=== PATIENT | female | born 1940 | race Caucasian/White ===

== ENCOUNTER 2017-02-01 07:17 | Emergency (ER) | payer MEDICARE, OTHER ==
[~2017-02-01] VITALS: Ht 160 cm; Wt 63.5 kg
[~2017-02-01 07:17] MED LIST: AMLO5TAB PO; ASPIR 8181 MG PO; ASPIRIN 325MG325 MG PO; CALTRATE 600 +1 TA1 PO; CENTRUM1 TA2 PO; FEXOFENADINE180 MG PO; FLOVENT 11110 MCG/PU IH; FLUTICASONE 50M16 GM; GAVISCON OR; MASON NATURAL1200 MG PO; MAXAIR0.2 MG/ACT IH; METOPROLOL25 MG PO; MULTI VITAMINS1 TAB PO; NEXIUM40 MG PO; PLAVIX75 MG PO; PREMPRO 0.45 MG1 TAB PO; PRILOSEC40 MG PO; SERTRALINE100 M1 PO; SIMVASTATIN20 MG PO; SINGULAIR 10 MG10 MG PO; SINGULAIR10 MG PO; SUPER B COMPLEX1 TAB PO; TESSALON PERLE100 MG PO; TOPAMAX15 MG PO; TOPCARE ASPIRIN81 MG PO; VITAMIN D400 I1 PO; ZOLOFT25 MG PO
--- NOTE | 2017-02-01 08:25 | Emergency Room Report ---
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 N Clinical Suspician of Infection? Y Mental Status: 1 - Regular (Normal Baseline) Sepsis Risk:Low Sepsis Risk Have you (or family members/close friends) recently traveled outside the [place]? N If Yes, where/when: Have you had exposure to infectious disease within the past month? N TB? Other? Specify: I read and noted the above triage. But during my interview she was holding the left side of her neck and claiming that her neck hurts, Also, she claims pain in the upperthoracic region, she denies lumbar pain, but as mention above she has tail bone pain. She denoes numbness or tingling of the arms or legs, no loss of urine or bowel control. She denies head trauma, hedache, chest pain, palpitation , soa, abdominal pain, hematemsis or melena. She had vertebroplasty last year by Dr Kingston from [facility] and talin daily calcium without biphosphonate. Source patient, RN notes reviewed, family Exam Limitations no limitations ALLERGIES Coded Allergies: No Known Allergies (08/10/15) Home Medications Active Scripts Omeprazole (Prilosec 40mg Cap) 40 MG PO DAILY #30 CAP Prov: 07/23/12 Reported Medications Aspirin (Aspirin EC 81MG Tab) 81 MG PO DAILY Amlodipine Besylate (Amlodipine) 5 MG PO DAILY Montelukast Sodium (Singulair 10MG) 10 MG PO DAILY MULTIVITAMIN/IRON/FOLIC ACID (Centrum Complete Multivit Tab) 1 TAB PO DAILY CALCIUM CARBONATE/VITAMIN D3 (Caltrate 600 + D Tablet) 1 TAB PO DAILY Topiramate (Topamax) 15 MG PO QHS FLUTICASONE PROP (Flovent 110) 2 PUFF IH BID #1 INH SERTRALINE HCL (Sertraline HCl) 100 MG PO DAILY History Medical History General CAD? No Angina: Yes PR: No Hypertension? No Hyperlipidemia? Yes CHF? No DVT? No PE? No COPD? No Asthma? Yes Anemia? No GERD? No Gastric ulcers? No GI Bleed? No Hernia? No Thyroid Problems? No Hypothyroidism? No CVA? No Seizures? No Diabetes? No Renal Insuffiency? No End Stage Renal Disease? No UTI? No Stones? No BPH? No GB Disease: No Nephritic Syndrome? No Asplenia? No Hepatitis? No Sickle Cell Disease? No Arthritis? No Migraines? No Cataracts? No Glaucoma? No MRSA? No HIV? No TB? No Anxiety? No Depression? No Cancer? No More? No Immunization Hx DT/Tetanus UNKNOWN Flu THIS YR Pneumonia 1-4 YRS Surgical Hx Previous Surgery?Y FISTULA REPAIR BOWEL CARDIAC STENT L SHOULDER SURGERY HEART CATH Family History Family Hx Diabetes No CAD No Hypertension No Hyperlipidemia No Cancer No TB No Social History Smoking Hx Smoker: Never Smoker Tobacco: No Alcohol Alcohol: No Review of Systems All Other Systems Reviewed and Negative Constitutional no symptoms reported Eyes no symptoms reported ENT no symptoms reported. Respiratory no symptoms reported Cardiovascular no symptoms reported Gastrointestinal no symptoms reported Genitourinary no symptoms reported. Musculoskeletal see HPI, neck pain (upper back and tail bone pain) Skin no symptoms reported Psychiatric/Neurological no symptoms reported Physical Exam Vital Signs Vital Signs Date Time Temp Pulse Resp B/P Pulse O2 O2 Flow FiO2 Ox Delivery Rate 02/02 0817 59 18 152/77 98 02/01 0725 98.4 66 18 133/81 98 - WBC >12,000 or <4,000 or 10% bands? 2 or more SIRS Criteria Met? B/P:152/77 MAP:98 Creatinine >2.0? UA output<0.5ml/kg/hr for 2 hrs? Platelet count >100,000? Lactate >2.0mmol/1? INR >1.2 or PTT > than 60 sec? Evidence of Organ Dysfunction? Provider documented clinical suspician of infection? Y Sepsis Criteria Count: 1 Sepsis Risk: Low Sepsis Risk General Appearance normal appearance, WD/WN Eye Exam - bilateral eye normal exam, bilateral eye PERRL, bilateral eye EOMI Ear, Nose, Throat hearing grossly normal, normal ENT inspection Neck normal inspection (C5-6 and upper T2-3 tenderness) Respiratory Status Yes: trachea midline, chest symmetrical, non tender chest. No: respiratory distress. Lung Sounds bilateral: normal breath sounds, lungs clear. Cardiovascular normal exam, regular rate/rhythm, no peripheral edema, no gallop, no JVD, no murmur, no rub, normal peripheral pulses Peripheral Pulses Pulses normal Yes Gastrointestinal normal bowel sounds, normal exam, non tender, soft, no organomegaly Back normal inspection, no CVA tenderness, vertebral tenderness, see neck exam in addition to tenderness over the coccyx, there was NO lower thoracic or lumbar spine tenderness. Extremities non-tender, normal range of motion, normal inspection Neurologic alert, cook station II-XII nml as tested, normal exam, oriented x 3 Reflexes Reflexes normal Yes Mental status normal mood/affect Skin intact, normal color, warm/dry Lymphatic no adenopathy Medical Decision Making LABS/Meds/Orders Pt receiving controlled substance in ED? No Results/Orders Orders Procedure Date/time Status DIET-NOTHING BY MOUTH 02/[address] SCAN REQ 02/[address] SCAN REQUEST 02/02 816 Complete XRAY/CT/US XRAY/CT/US XRAY pelvis, L-spine XR interpretation by reviewed by me, discussed w/radiologist Xray Results no fracture seen Comment positive osteopenia and L2 vertebroplasty. no acute fractures. CT C-spine, T-spine CT interpretation by discussed w/radiologist Time results known: 956 CT Results no fracture seen, abnormal, osteopenia Departure Departure Time of Disposition 956 Disposition DC Home or Self Care(routine) Clinical Impression Primary Impression: Fall Secondary Impressions: Osteoporosis, Spasm of cervical paraspinous muscle Condition STABLE Referrals Cosme CASTILLO,Vaibhav Cueto (Family) Additional Instructions I have discussed withthe patient her x ray findings, I clearly spoke with her about getting better control and treatment of her osteoprosis to avoid fractures in the futures, she asked for pain medicine and I advised her that i will be rx a muscle relaxant. 1- rest. 2- warm compresses. 3- icy hot. 4- observe for new sx of numbness, tingling, weakness or loss of urine or bowel control to return. 5- follow up with Dr. Aguiar for osteoporsis control. Obtain MRI by Dr. Aguiar if pain persists. Discharge Counseling Counseled pt/family regarding diagnosis, test results, medications/RX, home care, follow up needs Prescriptions Current Visit Scripts Methocarbamol (Robaxin) 500 MG PO Q8HP PRN muscle pain #21 TAB ED Critical Care Critical Care No If Critical Care minutes are documented, the time involved in the performance of seperately reportable procedures was not counted toward critical care time documented. I directly delivered medical care to this critically ill and/or injured patient. Timely evaluation and treatment was necessary to address the significant organ system(s) dysfunction present in this patient. at 1002
--- NOTE | 2017-02-01 09:38 | RADIOLOGY REPORT PS360 ---
CT CERVICAL SPINE W/O CONT COMPARISON: None HISTORY: Patient fell yesterday in yard complaining of neck pain TECHNIQUE: Multiple axial scans of cervical spine were obtained. Sagittal coronal reformats were evaluated as well. FINDINGS: There is generalized osteopenia. There is normal curvature and alignment and C1-C7 appear intact. There is prominent anterior ossific spurring at the C3-4 level. There is no significant disc space narrowing. The spinal canal is normal size throughout. The prevertebral soft tissues are normal and the odontoid is normal. IMPRESSION: Relies osteopenia mild degenerative change at the C3-4 level, no acute cervical spine pathology noted
--- NOTE | 2017-02-01 09:43 | RADIOLOGY REPORT PS360 ---
CT THORACIC SPINE W/O CONTRAST COMPARISON: None HISTORY: Back pain after a fall yesterday TECHNIQUE: Multiple axial scans of the resting spine were obtained. Sagittal coronal reformats were evaluated as well. FINDINGS: There is prominent generalized osteopenia. There is normal curvature and alignment. 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 There is apparent old healed fracture at the costovertebral junction right side of T9 vertebrae. There is no acute compression fracture seen. There is no paraspinal mass. IMPRESSION: Prominent generalized osteopenia, mild multilevel degenerative changes, no acute compression fracture seen
--- NOTE | 2017-02-01 09:45 | RADIOLOGY REPORT PS360 ---
LUMBAR SPINE 5 VIEWS COMPARISON: Lumbar spine 07/24/2015 HISTORY: Low back pain after a fall TECHNIQUE: AP lateral and oblique views FINDINGS: There is normal curvature and alignment. There is a vertebroplasty of the L2 vertebral body for stabilization of a previous compression fracture which has occurred since the previous lumbar spine films of 07/24/2015 there is no acute compression fracture seen. Disc spaces are well maintained throughout. There is no pars defect. There is mild generalized osteopenia. IMPRESSION: Old vertebroplasty L2 vertebral body, no acute compression fracture seen
--- NOTE | 2017-02-01 09:46 | RADIOLOGY REPORT PS360 ---
PELVIS AP ONLY COMPARISON: AP pelvis and right hip 11/07/2015 HISTORY: Pelvic pain after a fall TECHNIQUE: AP pelvis FINDINGS: The iliac bones and pubic bones appear intact. Both hips are normally articulated with no evidence of fracture. The SI joints and symphysis pubis appear normal. IMPRESSION: Negative AP pelvis
--- NOTE | 2017-02-01 09:47 | RADIOLOGY REPORT PS360 ---
COCCYX 2 VIEW COMPARISON: None HISTORY: Tailbone pain after a fall TECHNIQUE: AP and lateral views FINDINGS: The sacrum and coccyx appear intact showing normal curvature and alignment. There is no fracture or subluxation. IMPRESSION: Negative sacrum and coccyx
[2017-02-01] MEDS ORDERED: ROBAXIN500 M1 PO (10:01)
[2017-02-01 10:25] VITALS: BP 152/77
--- OUTSIDE RECORDS SUMMARY | 2017-02-06 18:00 | External Medical Summary Rpt | CCD ---
Author Author , PRIMITIVO Organization [employer] Address Unknown Phone [email or web address] Support Name Relationship Address Phone FIGHT, Next Of Kin [address] [facility] [phone] [place] [id number] Purpose Continuity of Care Document - 07-23-2012 through 2016 Allergies, Adverse Reactions, Alerts Type Drug Allergy Adverse Reaction to Substance Substance Reaction Severity Albuterol Unknown Unknown Medications Na ND Rx Da Fi Fi Am Da Di Ph RX Ph St me C No te ll ll ou ys ag ar # ys at rm s nt no ma ic us Or Da si cy ia de te s n re d Sa 63 03 0 No li 80 -2 ne 70 9- Lo 10 20 ng Fl 07 13 er us 5 h Ac 10 ti ML ve Sy ri ng e NI 59 03 0 No TR 63 -2 OG 00 9- Lo LY 30 20 ng CE 06 13 er RI 5 N Ac 0. ti 4M ve G/ DO SE SP RA Y GI 12 03 0 No 32 -2 CO 22 9- Lo CK 22 20 ng TA 22 13 er IL 2 Ac 60 ti ML ve UD C Vital Signs 07-23-2012 14:30 Name Value Interpretat Reference Comment ion Range Body 97.9 [degF] Temperature BP 77 mm[Hg] Diastolic BP Systolic 148 mm[Hg] Heart 77 /min Rate/Pulse O2% 96 % Respiratory 18 /min Rate 07-23-2012 11:13 Name Value Interpretat Reference Comment ion Range BP 82 mm[Hg] Diastolic BP Systolic 179 mm[Hg] Heart 63 /min Rate/Pulse O2% 99 % Respiratory 16 /min Rate Results Labs Lab Lab Date Result Refere Interp Status Commen Order Detail nces retati t Range on CK SerPl-cCnc (07-23-2012 13:15) CK 51 U/L 26-192 complet SerPl-c 013 ed Cnc 13:15 CK MB SerPl-mCnc (07-23-2012 13:15) CK MB 0.9 0.0-3.6 complet SerPl-m 013 ng/mL ed Cnc 13:15 TROPONIN I (07-23-2012 13:15) TROPONI Less 0.00-0. complet N I 013 than 06 ed 13:15 0.02 ng/mL BASIC METABOLIC PANEL (07-23-2012 11:00) Glucose 84 74-106 complet 013 mg/dL ed Bld-mCn 11:00 c BUN 13 7-18 complet Bld-mCn 013 mg/dL ed c 11:00 Creat 0.8 0.6-1.0 complet SerPl-m 013 mg/dL ed Cnc 11:00 GFR 71 59- complet (ESTIMA 013 ML/MIN ed ANDI) 11:00 Sodium 141 136-145 complet SerPl-s 013 mmoL/L ed Cnc 11:00 Potassi 3.4 3.5-5.1 complet um 013 mmoL/L ed SerPl-s 11:00 Cnc Chlorid 103 98-107 complet e 013 mmoL/L ed SerPl-s 11:00 Cnc CO2 35 21.0-32 complet SerPl-s 013 mmoL/L .0 ed Cnc 11:00 Calcium 8.5 8.5-10. complet 013 mg/dL 1 ed SerPl-m 11:00 Cnc CK SerPl-cCnc (07-23-2012 11:00) CK 53 U/L 26-192 complet SerPl-c 013 ed Cnc 11:00 CK MB SerPl-mCnc (07-23-2012 11:00) CK MB 1.2 0.0-3.6 complet SerPl-m 013 ng/mL ed Cnc 11:00 TROPONIN I (07-23-2012 11:00) TROPONI Less 0.00-0. complet N I 013 than 06 ed 11:00 0.02 ng/mL CBC with AUTO DIFF (07-23-2012 11:00) WBC # 07-23-2 7.2 4.8-10. complet Bld 013 K/MM3 8 ed Auto 11:00 RBC # 07-23-2 4.81 4.2-5.4 complet Bld 013 M/mm3 ed Auto 11:00 Hgb 13.9 12.2-16 complet Bld-mCn 013 g/dL .2 ed c 11:00 Hct Fr 44.7 % 37.0-47 complet Bld 013 .0 ed 11:00 MCV RBC 93.0 fl 82.2-97 complet 013 .8 ed 11:00 MCH RBC 28.9 pg 27-31.2 complet Qn 013 ed Auto 11:00 MEAN 31.1 31.8-35 complet CORPUSC 013 g/dl .4 ed ULAR 11:00 HGB CONC RDW RBC 15.6 % 11.5-17 complet Auto 013 .5 ed 11:00 Platele 305 142-424 complet t Bld 013 K/mm3 ed Ql 11:00 Manual Granulo 65.5 % 37.0-80 complet cytes 013 .0 ed Fr Bld 11:00 Auto LYMPH % 29.0 % 10-50.0 complet 013 ed 11:00 Monocyt 5.5 % 1.7-9.3 complet es Fr 013 ed Bld 11:00 Auto Granulo 07-23- 4.7 1.8-7.8 complet cytes # 013 K/mm3 ed Bld 11:00 Auto Lymphoc 2 2.1 0.7-4.5 complet ytes Fr 013 K/mm3 ed Bld 11:00 Auto Monocyt 2 0.4 0.1-1.0 complet es # 013 K/mm3 ed Bld 11:00 Auto Encounters Encounter Start End Date Code Location Performer Type Date Emergency CHARY Haley MD (ER) 3 12:00 3 14:31 [facility]
--- OUTSIDE RECORDS SUMMARY | 2017-02-06 18:00 | External Medical Summary Rpt ---
Author Author RIDGE [facility] Organization [facility] Address Unknown Phone Unavailable Care Team Providers Care Valve Fitter Name Role Phone JORDAN BUCKY PCP [phone] Encounter RIDGE RUFFIN [id number] Date(s): 01/29/16 - 01/29/16 [facility] [address] [place] [address]- [phone] Discharge Disposition: OP Self Care or Home Attending Physician: DARIAN HINDS MD-ORT Admitting Physician: DARIAN HINDS MD-ORT Referring Physician: DARIAN HINDS MD-ORT Reason for Visit SACROILIITIS, NOT ELSEWHERE CLASSIFIED Vital Signs No data available for this section Problem List Condition Effective Status Health Informant Dates Status Asthma(Confi Active rmed) Stented Active patient coronary artery(Confi rmed)1 1Around five years ago Allergies, Adverse Reactions, Alerts No Known Allergies Medications No data available for this section Results No data available for this section Immunizations No data available for this section Procedures No data available for this section Social History No data available for this section Assessment and Plan No data available for this section Hospital Discharge Instructions No data available for this section
--- OUTSIDE RECORDS SUMMARY | 2017-02-06 18:00 | External Medical Summary Rpt | CCD ---
Author Author , PRIMITIVO Organization [employer] Address Unknown Phone [email or web address] Support Name Relationship Address Phone FIGHT, Next Of Kin [address] [facility] [phone] [place] [id number] Purpose Continuity of Care Document - 07-23-2012 [...] Haley MD (ER) 3 12:00 3 14:31 [facility]
--- OUTSIDE RECORDS SUMMARY | 2017-02-06 18:00 | External Medical Summary Rpt ---
Author Author RIDGE [facility] Organization [facility] Address Unknown Phone Unavailable Care Team Providers Care Balancer Name Role Phone JORDAN BUCKY PCP [phone] Encounter RIDGE RUFFIN [id number] Date(s): 01/29/16 - 01/29/16 [facility] [address] [place] [address]- Discharge Disposition: OP Self Care or Home [...]
--- OUTSIDE RECORDS SUMMARY | 2017-02-06 18:01 | External Medical Summary Rpt | CCD ---
Author Author , PRIMITIVO Organization [employer] Address Unknown Phone [email or web address] Immunization Name Date Rout CVX Reac Dose Comm Prov Is Faci e tion ent ider Refu lity Give sed n PCV1 03-2 133 0.5 Hist LEWI No RITE 3 9-20 mL oric S AID0 17 al DWIG 3938 Info HT rmat ion - Sour ce Unsp ecif ied Td 03-0 Intr 9 999 Hist H149 No H149 (leyda 4-19 amus oric lt), 97 cula al r Info adso rmat rbed ion - Sour ce Unsp ecif ied
--- OUTSIDE RECORDS SUMMARY | 2017-02-06 18:01 | External Medical Summary Rpt ---
Author Author PRIMITIVO Sanchez, PRIMITIVO Sanchez Organization [employer] Address Unknown Phone Unavailable
--- OUTSIDE RECORDS SUMMARY | 2017-02-06 18:01 | External Medical Summary Rpt | CCD ---
Author Author , [employer]IM[employer]IVO Organization [employer] Address Unknown Phone [email or web address] Immunization Name Date Rout CVX Reac Dose [...]
--- OUTSIDE RECORDS SUMMARY | 2017-02-06 18:01 | External Medical Summary Rpt | CCD ---
Author Author [employer] Organization [employer] Address Unknown Phone Unavailable Purpose Continuity of Care Document - through 2016
== END 2017-02-01 10:25 | disposition home or self-care (01) ==
LOC: ER 07:17
DX: M62.838 Other muscle spasm (principal); M81.0 Age-related osteoporosis without current pathological fracture; Z79.82 Long term (current) use of aspirin; J45.909 Unspecified asthma, uncomplicated; E78.5 Hyperlipidemia, unspecified; W01.0XXA Fall on same level from slipping, tripping and stumbling without subsequent striking against object, initial encounter; Y92.019 Unspecified place in single-family (private) house as the place of occurrence of the external cause